=== PATIENT | female | born 1995 | race Caucasian/White ===

== ENCOUNTER 2017-01-19 23:45 | Emergency (ER) | payer OTHER ==
[~2017-01-19] VITALS: Ht 175.3 cm; Wt 51.0 kg
[2017-01-20] MEDS ORDERED: SODIUM CHLORIDE 0.9% 1,000ML IVBOLUS ONE (03:30)
[2017-01-20 05:02] VITALS: BP 110/70
== END 2017-01-20 05:12 | disposition home or self-care (01) ==
LOC: ED 23:59
DX: F10.921 Alcohol use, unspecified with intoxication delirium (principal)
CPT/HCPCS: 70450; 99284; J7030